=== PATIENT | female | born 1950 ===

== ENCOUNTER 2025-09-24 15:28 | Outpatient (AMB) | payer OTHER, SELFPAY ==
--- NOTE | 2025-09-24 15:33 | MHC.OFFVIS ---
Intake Visit Reasons: 6m stroke Director Of User Experience Required: Yes Director Of User Experience Services: Director Of User Experience Offered & Declined (Family to translate) Accompanied by: Family/Other Allergies No Known Allergies Allergy (Verified 09/24/25 15:53) Medication List - Last Reconciled 09/24/25 by Pavithra Young CNP atorvastatin 40 mg PO BEDTIME clopidogrel 75 mg PO dulaglutide (Trulicity) 0.75 mg subcut QWEEK famotidine 40 mg PO DAILY insulin glargine (Lantus Solostar U-100 Insulin) 40 units subcut DAILY losartan 50 mg PO BID HPI Comments Details: 75-year-old RH woman with diabetes, hypertension, hyperlipidemia, and stroke. She had a stroke in 04/2023 which she recovered fairly well from. She presented to [facility] on 05/07/2024 for acute onset of left upper extremity weakness. MRI apparently showed multiple small acute and subacute infarcts in the right hemisphere suggesting embolic events and extensive small vessel disease. CT scan showed an old left frontal area of encephalomalacia. CTA did not show any large vessel occlusive disease and some minor intracranial disease in the posterior cerebral arteries. Echocardiogram showed some hypertrophy and 60% ejection fraction. She saw cardiology and holter monitor was apparently okay. She was doing okay. No new stroke-like symptoms. No speech or swallowing problems. No vision changes. No headaches or dizziness. No new or increased weakness. She was walking with cane, no falls. Blood pressure was better after medication was switched from lisinopril to losartan. Blood sugar has been okay. Sleep was okay. [facility] Medical History (Updated 09/24/25 @ 15:36 by Pavithra Young CNP) Stroke Review of Systems Const Denies chills, Denies daytime sleepiness, Denies difficulty sleeping, Denies fatigue, Denies fever(s), Denies frequent falls, Denies headache(s), Denies increased appetite, Denies poor appetite, Denies snoring, Denies weakness, Denies weight gain and Denies weight loss Eyes Denies loss of vision ENT Denies vertigo, Denies dizziness, Denies headache(s) and Denies neck pain Card Denies chest pain at rest, Denies chest pain with activity, Denies syncope, Denies leg edema, Denies palpitations, Denies dyspnea and Denies dyspnea on exertion Resp Denies cough, Denies dyspnea, Denies dyspnea on exertion and Denies snoring GI Denies abdominal pain, Denies constipation, Denies heartburn, Denies diarrhea and Denies nausea Denies urinary frequency, Denies urinary incontinence and Denies urinary urgency Musc Denies abnormal gait, Denies back pain, Denies myalgias, Denies arthralgias, Denies neck pain, Denies numbness and Denies tingling Neuro Denies abnormal gait, Denies vertigo, Denies dizziness, Denies syncope, Denies frequent falls, Denies headache(s), Denies lack of coordination, Denies loss of vision, Denies memory loss, Denies numbness, Denies Other visual disturbances, Denies restless legs, Denies seizure-like activity, Denies tingling, Denies paresthesias, Denies tremor(s), Denies weakness and Reports other (balance difficulty) Psych Denies anxiety, Denies depression, Denies auditory hallucinations, Denies memory loss and Denies visual hallucinations Endo Denies fatigue and Denies palpitations Physical Exam Const Other: General Appearance:? normal, in no acute distress. Heart:? S1, S2 normal, no murmurs. Lungs:? clear anteriorly and posteriorly. Musculoskeletal:? normal. Extremities:? no edema. Psych:? alert, oriented, cognitive function intact, cooperative with exam. Neuro Other: Abnormal Neurological Findings:?R shoulder abduction weakness. Walking with cane. Mental Status: alert and oriented X 3. Normal attention, orientation, memory, and affect. Cranial Nerves: Pupils are equal, round, and reactive to light. External ocular muscles are intact. Visual sumner are full, no ptosis. Face is symmetrical, no facial weakness or droop. Facial sensations are normal. Tongue protrudes in midline. Palate elevates symmetrically. Shoulder shrugging is normal Motor Examination: As above. DTRs 0-1+, plantars are flexor. Sensory Exam: Normal light touch, temperature, pinprick, vibration, and joint-position sensations. Rhomberg sign is absent. Coordination: No ataxia. No titubation. Gait Exam: With cane. Cerebellar Signs: [id number] is okay. Extrapyramidal System: No tremor, rigidity with normal facial expressions. No bradykinesia. No bradyphrenia. Normal arm swing and posture. No propulsion or retropulsion. Speech: Normal. No dysphasia or dysarthria. Assessment & Plan Assessment & Plan (1) History of stroke: Code(s): Z86.73 - Personal history of transient ischemic attack (TIA), and cerebral infarction without residual deficits Category: Medical Plan: Continue current treatment - continue statin, control blood pressure. Coding Level of Care Code Est Pt Level 3 (49274) Diagnoses History of stroke Z86.73
--- OUTSIDE RECORDS SUMMARY | 2025-09-24 17:06 | XMS_ITS | Continuity of Care Document ---
Author Name Chacho Gleason Address [address] [place] [address] Organization Unknown Address [address] [place] [address] Medications No known medications Problems No known problems
--- OUTSIDE RECORDS SUMMARY | 2025-09-24 17:06 | XMS_ITS | Data Portability ---
Author Organization [facility], [facility] Address [address] [place] [address] Care Team Providers Care Inflatable Buildings Laminator Name Role Phone HIM CCA OTHER NALLELY W[place] Primary Care Provider Assessment Encounter Date Assessment Date Assessment LastModified by Organization Details LastModified Time 06/14/2024 06/14/2024 I provided real -time medical direction via phone for this encounter, and was available for additional phone based assistance as needed. I have reviewed and agree with the Assessment and Plan as documented by the Flame Hardening Machine Setter. We discussed the diagnostic uncertainty of home visits and the risk associated with this. In this case I felt this to be an acceptable and reasonable amount of risk given the benefit of avoiding an ED visit. The patient given the opportunity to ask questions. [email or web address] Not available 06/14/2024 12:52:58 05/14/2025 05/14/2025 I provided real -time medical direction via phone for this encounter and was available for additional phone-based assistance as needed. I have reviewed and agree with the Assessment and Plan as documented by the Flame Hardening Machine Setter. Patient given the opportunity to ask questions. Our service contacted for an assessment of: Right wrist pain As per above, patient with right wrist pain for several days after being diagnosed previously with inflammation by PCP and told to take Tylenol. Has CKD and cannot take NSAIDs. Per dusting and brushing machine operator on the scene, VSS, AF. No concern on evaluation by dusting and brushing machine operator for an infection or gout as there is no warmth or erythema. Can ROM Impression: Right wrist pain - ? OA Plan: Take Tylenol. F/u with PCP. Consider ortho referral to see if steroid injection may work. PCP consider trial of topical meds. Can use ice prn Allergies: Reviewed PCP f/u: We discussed the diagnostic uncertainty of home visits and the risk associated with this. In this case, the patient and I felt this to be an acceptable and reasonable amount of risk given the benefit of avoiding an ED visit. We discussed the need to seek care urgently/emergentl y in the setting of any new or worsening serious symptoms, particularly fever chills lightheadedness altered mental status [email or web address] Not available 05/14/2025 11:35:45 Plan of Treatment Reminders Order Date Submit Date Provider Last Modified By Organization Details Last Modified Time Details Appointments None record ed. Lab None record ed. Referral None record ed. Procedures None record ed. Surgeries None record ed. Imaging None record ed. Medication Orders None record ed. Patient TargetsNo targets recorded. Patient InstructionsNo instructions recorded. Reason for Referral None Reported. Medical Equipment None Reported. Allergies Allergen ID Allergen Name Allergen Category Reaction Reaction Severity Criticality Documentation Date Start Date Code Code System Note Provider Name and Address Organization Details Recorded Time 89168 Product containin g penicilli n (product) medicatio n Not available Not available Not available 05/14/2025 05192 8001 SNOMED Not Available [facility] - production 10:50:10 Medications Name Sig Start Date Stop Date Status Note LastModified by Organization Details LastModified Time amoxicillin 500 mg capsule active Not Available Not Availab le Not Available atorvastatin 80 mg tablet TAKE 1 TABLET BY MOUTH EVERY NIGHT AT BEDTIME active Not Available Not Available No t Available atorvastatin 20 mg tablet TAKE ONE TABLET BY MOUTH EVERY DAY AT BEDTIME active Not Available Not Available No t Available aspirin 325 mg tablet active Not Available Not Available Not Available metoprolol tartrate 100 mg tablet active Not Available Not Available No t Available FreeStyle Lancets 28 gauge active Not Available Not Available Not Available lisinopril 20 mg tablet TAKE 1 TABLET BY MOUTH DAILY active Not Available Not Available No t Available famotidine 40 mg tablet active Not Available Not Available No t Available prednisone 20 mg tablet active Not Available Not Available No t Available clopidogrel 75 mg tablet TAKE ONE TABLET BY MOUTH daily active Not Available Not Available No t Available acetaminophen 500 mg tablet active Not Available Not Availabl e Not Available hydrochlorothi azide 12.5 mg capsule active Not Available Not Available Not Available lisinopril 5 mg tablet TAKE 1 TABLET BY MOUTH DAILY active Not Available Not Available No t Available gabapentin 100 mg capsule TAKE ONE CAPSULE BY MOUTH THREE TIMES DAILY active Not Available Not Available No t Available omega-3 acid ethyl esters 1 gram capsule active Not Available Not Available Not Available Sure Comfort Pen Needle 31 gauge x 5/16 USE DIRECTED once daily active Not Available Not Available No t Available FreeStyle Lite Meter kit active Not Available Not Available No t Available FreeStyle Lite Strips active Not Available Not Available Not Available Lantus Solostar U-100 Insulin 100 unit/mL (3 mL) subcutaneous pen Inyecte 40 unidades en el piel hayden vez al malou active Not Available Not Available No t Available Trulicity 0.75 mg/0.5 mL subcutaneous pen injector active Not Available Not Available Not Available Vitals Date Recorded Heart rate Oxygen saturation Oxygen saturation in Arterial blood by Pulse oximetry Respiratory rate Systolic And Diastolic Provider Name and Address Organization Details Last Updated DateTime 5 68 /min 98 % 98 % 16 /min 170/90 mm[Hg] Not Available [facility] - production 5 11:30:59 Date Recorded Oxygen saturation Oxygen saturation in Arterial blood by Pulse oximetry Heart rate Body temperature Respiratory rate Systolic And Diastolic Provider Name and Address Organization Details Last Updated DateTime 4 97 % 97 % 104 /min 97.8 [degF] 20 /min 188/92 mm[Hg] Not Available [facility] - [facility] 4 12:47:44 Social History None recorded. Functional Status None recorded. Mental Status None recorded. Family History Nothing Reported. Medical History No medical history recorded. Gynecological HistoryNo gynecological history recorded. Obstetrics History GPAL:G 0 P 0 0 0 0 Past Encounters Encounter ID Performer Location Encounter Start Date Encounter Closed Date Diagnosis/Indication Diagnosis SNOMED-CT Code Diagnosis ICD10 Code Diagnosis IMO Codes Diagnosis Note [id number] Maria L Srivastava MD [facility] [address] [place] [id number] 06/14/2024 12:47:35 06/17/2024 21:47:11 Pain of left elbow joint [id number] M25.522 Acute injury.-Du e to pain level and limited range of motion the patient needs x-ray. I did not feel she needed the emergency department at this point as there is no other injury. Medic was able to locate an [facility] in [facility] that has x-rays capabiliti es and daughter will drive the patient for evaluation at the urgent care and x-rays. They can refer to orthopedic s if necessaryM edic tried to fashion a sling but the patient was too uncomforta ble so he used an ice pack wrapped in cloth. Tylenol offered but was declined as she had a dose 4 hours prior [id number] Talya Otto MD [facility] ED Medical [facility] [address] [place] [address] 05/14/2025 11:30:56 05/14/2025 17:06:37 Pain of right wrist [id number] 92666 M25.531 [id number] Health Concerns Section Related Observation LastModified by Organization Detai ls LastModified Time None Recorded Concern Status LastModified by Organization Details LastModified Time None Recorded Advance Directives Directive None Recorded Payers Insurance Date Sequence Insurance Name Policy Number Policy Andrade Covered Member ID Andrade Member ID Guarantor Name 05/14/2025 1 [facility] - DOS ON OR AFTER 2023 - DUAL ELIGIBLE - USP OPTIONS AND ONE C[employer] (MEDICARE REPLACEMENT/ADV ANTAGE - HMO) Erica Madsen [id number] Erica Madsen Notes Date Note Type Note Provider Name and Address Organization Details Recorded Time 06/14/2024 text/html ROS as noted in the HPI HPI: Fall with Elbow Pain. .................... .................... .................... .................... .................... .................... .................... . [facility] Nurse Triage Notes (Aleksandra Shannon): Chief Complaints: Falls, Pain PMH: Diabetes, Hypertension Comments: PMH; Gout, TBAFall on Tuesday night out of bed. Swelling to left elbow noted. No head strike. No LOC. Increased pain to elbow. Took Tylenol this morning between 8am and 9am. No ice/heat used. Elevating extremity.SEGMD: Patient had a mechanical fall out of bed landing on her left elbow. Patient has pain, swelling and limited range of motion no numbness. She denies any other injury.............. .................... .................... .................... .................... .................... .................... ........ Flame Hardening Machine Setter Note From Maxim Leary: Dispatched to above address for elbow pain from fall on Tuesday. On arrival patient 73 y/o F, met SC8 at the door, walking unassisted with normal gait, AOX4, airway patent, speaking in full sentences, good color, in no apparent distress, guarding L arm. Patient Swedish speaking only, granddaughter translating. Patient reports she fell out of bed onto L elbow on Tuesday morning, has had worsening pain and swelling since, now unable to move L arm without severe pain. Patients vital signs checked. On exam L elbow has swelling and redness, pain to palpation CMS of hand WNL. Photos taken and uploaded. [facility] contacted, spoke with Dr. Srivastava, advised of patient complaints and exam findings. [facility] agrees patient requires imaging for further evaluation. [facility] recommends transport to Urgent care by Family of care. Family agrees with this. [facility] Urgent Care contacted, will see patient today. Family agrees with this, will transport shortly. Patient and family have no additional questions or concerns. [facility] advised. KY[facility] clear. E[facility]. .................... .................... .................... .................... .................... .................... .................... . Disposition: Fulfilled Maria L Srivastava MD [address] [facility],[address], [place], [phone], Appifier - [employer] 06/14/2024 19:27:03 05/14/2025 text/html [facility] Nurse Triage Notes (Lizeth De Oliveira - RN): Reason For Request: Pt's daughter reporting right hand>daughter notes the pt had a heart attack 1 year ago> Chief Complaints: Extremity Pain, Extremity Swelling PMH: Hypertension, Stroke, Diabetes Mellitus Type 2, Hyperlipidemia PMH Reviewed at 05/14/2025 Allergies Reviewed at 05/14/2025:50 Comments: 74 y.o female complains of Extremity Pain, Extremity Swelling Family calling in to report a 2 day history of inflammation to patients right hand. They denies redness or warmth, no open areas/scratches, denies falls or trauma to the hand. Hand and fingers are painful up to the wrist, endorses swelling to the fingers, she is able to move her wrist and wiggle her fingers. The pain is making her hand weak. Off note, previous stroke affected the right side. Denies fever/chills. No history of blood clots, not on any blood thinners, takes an ASA. I provided information on the mobile health provider response time and advised the patient and/or caregiver to monitor reported signs and symptoms. I discussed the warning signs of when to seek emergency care. .................... .................... .................... .................... .................... .................... .................... . Flame Hardening Machine Setter Note From Jerome Chapman: Dispatched to the call address for the female with wrist pain/swelling. Pt states yesterday her wrist started hurting down to her fingers. She states the finger tips are a little numb/tingling and has swelling in her wrist. She has seen her PCP for this issue when she had it approx 5 months ago. She was advised it was fat deposits and to take Tylenol for the pain. Pt denies chest pain, diff breathing/sob, n/v/d, fevers or other complaints at this time. Pt was found sitting on living room couch, CAOx4, airway open and patent, breathing non labored, -JVD, -HEENT, skin PWD with good turgor, mucous membranes pink and moist, +CMSx4, afebrile, pupils PERRL, -edema, + slight swelling to right wrist, abd soft non tender/distended, lungs CTA. Pt was assessed. C consulted. Pt advised to call PCP for imaging. Red flags Discussed. ALL times are approx. .................... .................... .................... .................... .................... .................... .................... . [facility] Consulted: Talya Otto .................... .................... .................... .................... .................... .................... .................... . Disposition: Fulfilled Talya Otto MD [address] [facility],[address], [place], [phone], BEV - HALLE FLETCHER 05/14/2025 14:48:22 OBGyn Episode No OBEpisode recorded.
--- OUTSIDE RECORDS SUMMARY | 2025-09-24 17:06 | XMS_ITS | Encounter Summary ---
Author Organization [facility] Address [address] [place] [address] Encounters * CPT with Chacho Gleason at [facility] on 2025-05-14 { reasonForRequest : Pt's daughter reporting right hand>daughter notes the pt had a heart attack 1 year ago> , patientReports : , denies :[], chiefComplaints :"Extremity Pain, Extremity Swelling , pmh : Hypertension, Stroke, Diabetes Mellitus Type 2, Hyperlipidemia , allergies : Penicillins , otherAllergie s :null, painAssessment : , visitOutcome : , additionalComments : 74 y.o female complains of Extremity Pain, Extremity Swelling\n\nFamilycalling in to report a 2 day history of \ inflammation\ to patients right hand.\nThey denies redness or warmth, no open areas/scratches, denies falls or trauma to the hand.\nHand and fingers are painful up to the wrist, endorses swelling to the fingers, she is able to move her wrist and wiggle her fingers. The pain is making her hand weak. \nOff note, previous stroke affected the right side.\nDenies fever/chills.\nNo history of blood clots, not on any blood thinners, takes an ASA.\n\n\nI provided information on the mobile health provider response time and advised the patient and/orcaregiver to monitor reported signs and symptoms. I discussed the warning signs of when to seek [facility] care. } Dispatched to the call address for the [...] non tender/distended, lungs CTA. Pt was assessed. [facility] consulted. Pt advised to call PCP for imaging. Red flags Discussed. ALL times are approx. IV_(FLUIDS_AND/OR_MEDICATION), MEDICATION_IM, ORAL_MEDICATION, WOUND_CARE, ORTHOSTATIC_VITAL_SIGNS Written by Chacho Gleasno on 2025-05-14
== END 2025-09-24 16:01 | disposition home or self-care (01) ==
LOC: HO.HSM 15:28
PROVIDERS: PCP Physician Assistant; Visit Provider Registered Nurse
DX: Z86.73 Personal history of transient ischemic attack (TIA), and cerebral infarction without residual deficits (principal)
CPT/HCPCS: 99213

== ENCOUNTER → 2025-09-24 15:28 | Outpatient (BNVA) | payer OTHER, SELFPAY | PROVIDERS: PCP Physician Assistant; Visit Provider Registered Nurse | DX: Z09 Encounter for follow-up examination after completed treatment for conditions other than malignant neoplasm (principal); Z86.73 Personal history of transient ischemic attack (TIA), and cerebral infarction without residual deficits | CPT/HCPCS: 99212 ==